=== PATIENT | female | born 1955 | race Caucasian/White ===

== ENCOUNTER 2017-08-21 09:30 | Inpatient (IN) | payer BC ==
[2017-09-05] MEDS ORDERED: SCOPOLAMINE 1 PATCH TDSY TD ONE ×2 (06:00→14:08)
[2017-09-05] MEDS ORDERED: VANCOMYCIN HCL 1,000 MG in DEXTROSE 5 % IN WATER 250 ML IVPB ONE ×2 (06:00)
[2017-09-05] MEDS ORDERED: METOCLOPRAMIDE 10 MG TABLET PO ONE (06:00)
[2017-09-05] MEDS ORDERED: CELECOXIB 100 MG CAPSULE PO ONE (06:00)
[2017-09-05] MEDS ORDERED: CEFAZOLIN 2 Gram 2 GM/50 ML BAG IVPB ONE (06:00)
[2017-09-05] MEDS ORDERED: FAMOTIDINE 20MG TABLET PO ONE (06:00)
[2017-09-05 09:15] LABS: ABO GROUP O
[2017-09-05 09:16] LABS: ANTIBODY SCREEN NEGATIVE (NEGATIVE); RH TYPE POSITIVE
[2017-09-05] MEDS ORDERED: TRANEXAMIC ACID 1,000 MG/10 ML ML IV ONE ×2 (10:40→14:00)
[2017-09-05] MEDS ORDERED: 0.9 % SODIUM CHLORIDE 10 ML VIAL IVP ONE (10:40)
[2017-09-05] MEDS ORDERED: TRAMADOL HCL 50 MG TABLET PO PRN (12:59)
[2017-09-05] MEDS ORDERED: HYDROCODONE/APAP 10/325 TABLET PO PRN (12:59)
[2017-09-05] MEDS ORDERED: DIPHENHYDRAMINE HCL 25 MG CAPSULE PO PRN (12:59)
[2017-09-05] MEDS ORDERED: ONDANSETRON HCL IV 4 MG/2 ML VIAL IVP PRN (12:59)
[2017-09-05] MEDS ORDERED: MAGNESIUM HYDROXIDE 30 ML UDC PO PRN (12:59)
[2017-09-05] MEDS ORDERED: AL HYDROX/MAG HYDROX 30ML UD PO PRN (12:59)
[2017-09-05] MEDS ORDERED: ACETAMINOPHEN W/ CODEINE 300MG/60MG TABLET PO PRN ×2 (12:59)
[2017-09-05] MEDS ORDERED: HYDROMORPHONE HCL 2 MG/ML VIAL IM PRN (12:59)
[2017-09-05] MEDS ORDERED: BISACODYL 10 MG SUPP RC PRN (12:59)
[2017-09-05] MEDS ORDERED: ZOLPIDEM TARTRATE 5 MG TABLET PO PRN (12:59)
[2017-09-05] MEDS ORDERED: ACETAMINOPHEN 325 MG TAB PO PRN (12:59)
[2017-09-05] MEDS ORDERED: NALOXONE 0.4 MG/1 ML VIAL IVP PRN (12:59)
[2017-09-05] MEDS ORDERED: BUPIVACAINE 0.5% W/EPI MPF 30 ML VIAL IVP ONE (14:00)
[2017-09-05] MEDS ORDERED: HETASTARCH IN 0.9 % NACL 500 ML IV ONE (14:00)
[2017-09-05] MEDS ORDERED: NITROGLYCERIN 0.4MG SL TABLET #25 BTL SL PRN (14:03)
[2017-09-05] MEDS ORDERED: CLOTRIMAZOLE/BETAMET 15 GM TUBE TOP PRN (14:04)
--- NOTE | 2017-09-05 16:17 | Rehab Evaluation ---
Patient Information - Patient Information Diagnosis: L hip DJD Ordered Treatment: PT Evaluate and Treat Status: Initial Evaluation Surgery: Yes (L THR) Date of Surgery: 09/05/17 Past Medical/Surgical Hx: PAST MEDICAL/SURGICAL HISTORY Past Surgical History D and C c scope x's 2 right knee scope heart cath PMH - Respiratory Hx Respiratory Disorders Yes Hx Bronchitis Yes Hx Pneumonia Yes Comment: chronic allergies PMH - Cardiovascular Hx Cardiovascular Disorders Yes Hx Abnormal EKG Yes Hx Cardiac Catheterization Yes: 8-9 yrs ago Hx Chest Pain denies recent. 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 Congenital Heart Disease Yes: see above Exercise Tolerance Poor Comment: due to hip pain PMH - Neuro Hx Neurological Disorders Yes Hx Dizziness Yes: vertigo Hx Headaches Yes: on regular basis Hx Neuropathy Yes: hands CTS Hx Weakness Yes: left hip Comment: [facility] fell off steps concussion 20 yrs ago PMH - GI Hx Gastrointestinal Disorders Yes Hx Gastroesophageal Reflux Yes: controlled on meds Hx Weight Loss/Weight Gain Yes: 54 lb loss over last 11 months PMH - Hx Genitourinary Disorders Yes Hx Age of Menopause 56 Hx Bladder Problem Yes: leaking wears pad Hx Renal Disease Yes: minimally reduced PMH - Endocrine Hx Endocrine Disorders No Hx Diabetes No Hx Thyroid Disease No PMH - Musculoskeletal Hx Musculoskeletal Disorders Yes Hx Arthritis Yes Hx Gout Yes PMH - Psych Hx Psychiatric Problems No PMH - Hematology/Oncology Hx Hematology/Oncology Yes Disorders Hx Bruising Yes: easily Premorbid Status: Detail (The patient was independent with all mobility prior to surgery, however ambulation was painful.) Social History: Detail (The patient lives in a two story home with spouse with 5 steps at the enterance with two handrailings. The patient will not be using second story immediately after surgery. The patient's bathroom is equipped with a tub/shower combination with a shower chair and a standard toilet with a riser seat. The bathroom does not have grab bars. 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 All other LE AROM is WNL.) - Strength/Tone Not within normal limits (The patient's L LE strength was not tested due to s/p surgery, however was functional. The patient's R LE was generally 4+ to 5/5.) - Bed Mobility Independent (The patient was independent with supine to sit.) - Transfers Independent (The patient was independent with sit to and from stand transfer.) - Balance Balance Sitting: Good Balance Standing: Good - Sensation Intact - Gait Detail (The patient ambulated with standard walker 13 feet ( to bathroom) WBAT on L LE with supervision for safety only. The patient ambulated with standard walker a distance of 52 x 1 with supervision of 1 for safety and to handle IV WBAT on the L LE. The patient was left in chair with call light in place and family present.) Therapy Assessment - Therapy Assessment Detail (The patient was independent with transfers and bed mobility and ambulated with supervision for safety only. The patient was able to recall all THR precautions and followed precautions correctly.) Patient Education - Patient Education Teaching Topic: Precautions (The patient recalled all THR precautions.) Response: Verbalize Understanding Teaching Method: Discussion, Handout Teaching Recipient: Patient Barriers To Learning: None Problem List - Problem List Physical Therapy Problem List: Detail (1) Decreased L LE strength as to be expected following surgery. 2) Non ambulatory on stairs.) Goals - Goals Physical Therapy Goals: 1) The patient will be Independent with THR HEP. 2) The patient will ambulate on stairs with supervision for safety only. Prognosis - Prognosis Good Plan - Plan Physical Therapy Plan: PT 1-2 times a day for instruction in THR HEP and gait training until all PT goals have been met.
[2017-09-05] MEDS: CEFAZOLIN 2 Gram 2 GM/50 ML BAG IVPB SCH (17:52)
[2017-09-05] MEDS: POTASSIUM CHLORIDE/D5-0.9%NACL 20 MEQ/1,000 ML BAG IV SCH ×2 (18:53→22:09)
[2017-09-05] MEDS ORDERED: ONDANSETRON HCL IV 4 MG/2 ML VIAL IVP ONE (19:00)
[2017-09-05] MEDS: HYDROCODONE/APAP 10/325 TABLET PO PRN (20:01)
[2017-09-05] MEDS ORDERED: PANTOPRAZOLE SODIUM 40 MG TABLET PO SCH (22:00)
[2017-09-05] MEDS ORDERED: ASPIRIN 81 MG TABEC PO SCH (22:00)
[2017-09-05] MEDS ORDERED: MULTIVITAMINS/MINERALS TABLET PO SCH (22:00)
[2017-09-05] MEDS: DOCUSATE SODIUM 100 MG CAPSULE PO SCH (22:05)
[2017-09-05] MEDS: CALCIUM CARB/VITAMIN D 500MG/200IU PO SCH (22:05)
[2017-09-06] MEDS: HYDROCODONE/APAP 10/325 TABLET PO PRN ×4 (00:30→14:14)
[2017-09-06] MEDS: CEFAZOLIN 2 Gram 2 GM/50 ML BAG IVPB SCH ×2 (02:11→09:45)
[2017-09-06] MEDS: POTASSIUM CHLORIDE/D5-0.9%NACL 20 MEQ/1,000 ML BAG IV SCH ×2 (06:18→14:11)
[2017-09-06 07:02] LABS: HEMATOCRIT 34.2 % (35.0-47.0); HEMOGLOBIN 11.2 gm/dl (11.6-16.0)
[2017-09-06 07:33] LABS: BLOOD UREA NITROGEN 12 mg/dL (6-20); CREATININE 0.8 mg/dL (0.5-0.9); EST GLOMERULAR FILTRATION RATE > 60 mL/min; GLUCOSE,RANDOM 106 mg/dL (74-109)
[2017-09-06] MEDS: CALCIUM CARB/VITAMIN D 500MG/200IU PO SCH (09:43)
[2017-09-06] MEDS: DOCUSATE SODIUM 100 MG CAPSULE PO SCH (09:44)
[2017-09-06] MEDS ORDERED: RIVAROXABAN 10 MG TABLET PO SCH (10:00)
[2017-09-06] MEDS ORDERED: ALLOPURINOL 100 MG TAB PO SCH (10:00)
[2017-09-06] MEDS ORDERED: HYDROCHLOROTHIAZIDE 12.5 MG CAPSULE PO SCH (10:00)
[2017-09-06] MEDS ORDERED: FERROUS SULFATE 325 MG TAB PO SCH (10:00)
[2017-09-06] MEDS ORDERED: ATENOLOL 25 MG TABLET PO SCH (10:00)
--- NOTE | 2017-09-06 12:50 | Rehab Evaluation ---
Patient Information - Patient Information Diagnosis: L hip DJD Ordered Treatment: OT Evaluate and Treat Status: Initial Evaluation Surgery: Yes (L THR) Date of Surgery: 09/05/17 Past Medical/Surgical Hx: PAST MEDICAL/SURGICAL HISTORY Past Surgical History D and C c scope x's 2 right knee scope heart cath PMH - Respiratory Hx Respiratory Disorders Yes Hx Bronchitis Yes Hx Pneumonia Yes Comment: chronic allergies PMH - Cardiovascular Hx Cardiovascular Disorders Yes Hx Abnormal EKG Yes Hx Cardiac Catheterization Yes: 8-9 yrs ago Hx Chest Pain denies recent. 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 Congenital Heart Disease Yes: see above Exercise Tolerance Poor Comment: due to hip pain PMH - Neuro Hx Neurological Disorders Yes Hx Dizziness Yes: vertigo Hx Headaches Yes: on regular basis Hx Neuropathy Yes: hands CTS Hx Weakness Yes: left hip Comment: [facility] fell off steps concussion 20 yrs ago PMH - GI Hx Gastrointestinal Disorders Yes Hx Gastroesophageal Reflux Yes: controlled on meds Hx Weight Loss/Weight Gain Yes: 54 lb loss over last 11 months PMH - Hx Genitourinary Disorders Yes Hx Age of Menopause 56 Hx Bladder Problem Yes: leaking wears pad Hx Renal Disease Yes: minimally reduced PMH - Endocrine Hx Endocrine Disorders No Hx Diabetes No Hx Thyroid Disease No PMH - Musculoskeletal Hx Musculoskeletal Disorders Yes Hx Arthritis Yes Hx Gout Yes PMH - Psych Hx Psychiatric Problems No PMH - Hematology/Oncology Hx Hematology/Oncology Yes Disorders Hx Bruising Yes: easily Premorbid Status: Detail (The patient was independent with all mobility prior to surgery, however ambulation was painful. Mod. Ind. with I/ADL's (used AE d/t back and BLE pain).) Social History: Detail (The patient lives in a two story home with spouse with 5 steps at the enterance with two handrailings. The patient will not be using second story immediately after surgery. The patient's bathroom is equipped with a tub/shower combination with hand held shower head, a shower chair and a standard toilet with a riser seat. Pt. plans to obtain handles that attach to the toilet seat, also. The bathroom does not have grab bars. 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 Pt's will be available for 2 weeks post-sx to assist if needed during recovery period.) Precautions: [place], Fall, Other (THR precautions.) - Time With Patient Total Time Spent With Patient (Min): 35 Treatment Procedures: Detail (OT EVAL LOW. Session was concluded with pt. seated in arm chair with call light and bedside table within reach and all needs met.) Objective Data - Pain Pain Present: Yes (L hip) - Mental Status Patient Orientation: Oriented x3 - Visual Perception Appears within normal limits for therapeutic activities - ROM Within normal limits (BUE AROM. Pt. reported hx of L frozen shoulder, with no residual effects on activity post-tx.) - Strength/Tone Within normal limits (BUE MMT 4+/5) - Coordination Appears within normal limits for therapeutic activities - Transfers Independent (sit<>stand arm chair to walker and toilet with 3-in-1 commode to walker.) - Balance Balance Sitting: Good Balance Standing: Fair - Sensation Intact (Pt. reported Bran. 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 Light touch was intact bilaterally on all fingertips at this time.) - ADL's/IADL's Detail (Educ. provided in adaptive dressing techniques, application of hip precautions to ADL's, CTS conservative management and related adaptations (i.e. build up walker handles), and use of hip kit AE. Pt. verbalized understanding and returned demo. Pt. dressed UB Ind. seated in arm chair, and LB with modified Ind. using cloth bale header and sock aid. Pt. required only 2 VC to adhere to hip precautions throughout the session. Modified Ind. toileting. Pt. plans to have assistance donning compression garments.) Therapy Assessment - Therapy Assessment Detail (In-pt. OT services not recommended at this time. Pt. would benefit from in-home OT eval to assess environmental modification needs and tub t/f skills with application of hip precautions. Pt. has a positive support system, and will have assistance for at least two weeks if needed. Pt. has been compliant with hip precautions and demo. awareness of use of AE.) Patient Education - Patient Education Teaching Topic: Equipment Use, Precautions Response: Return Demonstration, Verbalize Understanding Teaching Method: Discussion, Demonstration Teaching Recipient: Patient, Significant Other () Barriers To Learning: None Problem List - Problem List Physical Therapy Problem List: Detail (1) Decreased L LE strength as to be expected following surgery. 2) Non ambulatory on stairs.) Goals - Goals Physical Therapy Goals: 1) The patient will be Independent with THR HEP. 2) The patient will ambulate on stairs with supervision for safety only. Prognosis - Prognosis Good Plan - Plan Physical Therapy Plan: PT 1-2 times a day for instruction in THR HEP and gait training until all PT goals have been met. Occupational Therapy Plan: D/C from in-pt. OT services. Educ. was provided to call rehab dept. if questions arise upon returning home.
--- NOTE | 2017-09-06 13:42 | Physical Therapy Tx Note ---
Physical Therapy Tx Note - Treatment Note Tolerated: Good Total Time Spent With Patient: 25 Physical Therapy Tx Note: Detail (The patient was up in chair and had just finished OT session. The patient complained of level 4 pain in L hip. The patient ambulated independently with standard walker a distance of 134 feet x 1 WBAT on the L LE. The patient ambulated on steps with use of folded walker and railing using proper technique with supervision for safety only. The patient's was present to observe proper technique. The patient completed THR exercises including: ankle pumps, heel slides, hip abduction, gluteal sets, hamstring sets and quad sets. The patient was independent with sit to and from supine transfer using following THR precautions.) Physical Therapy Problem List: Detail (1) Decreased L LE strength as to be expected following surgery. 2) Non ambulatory on stairs.) Physical Therapy Goals: GOALS MET: 1) The patient will be Independent with THR HEP. 2) The patient will ambulate on stairs with supervision for safety only. Physical Therapy Plan: All inpatient PT goals met. Patient is discharged from inpatient PT and is to recieve Home PT upon discharge.
[2017-09-06] MEDS ORDERED: *PACU ONLY* KETAMINE HCL 10 MG/ML (20ML) VIAL IV ONE (15:39)
[2017-09-06] MEDS ORDERED: ONDANSETRON HCL IV 4 MG/2 ML VIAL IVP ONE (15:39)
[2017-09-06] MEDS ORDERED: PHENYLEPHRINE HCL 10 MG/ML VIAL IVP ONE (15:39)
[2017-09-06] MEDS ORDERED: PROPOFOL 10 MG/ML VIAL IV ONE (15:39)
[2017-09-06] MEDS ORDERED: EPHEDRINE SULFATE 50 MG/ML ML IV ONE (15:39)
[2017-09-06] MEDS ORDERED: MIDAZOLAM HCL 2MG/2ML VIAL IV ONE (15:39)
[2017-09-06] MEDS ORDERED: DEXAMETHASONE 4 MG/ML 1ML VIAL IVP ONE (15:39)
--- NOTE | 2017-09-06 22:18 | Discharge Summary ---
DATE OF ADMISSION: 09/05/2017 DATE OF DISCHARGE: 09/06/2017 DATE OF SURGERY: 09/05/2017 HISTORY: Estephanie is a delightful 61-year-old female who presents with end-stage arthrosis of her left hip. She was admitted after a left total hip arthroplasty. Postoperatively she did well. Her hospital course was unremarkable. Her discharge hemoglobin was 11.2. She did not require transfusion. DISCHARGE INSTRUCTIONS: The plan is to discharge her to home in the care of her family. Home PT and Visiting Nurse has been arranged. She will be given Xarelto followed by Aspirin for DVT prophylaxis. She will be given [place] for pain. Her Visiting Nurse will remove her sutures in two weeks. She will follow-up in my office in four weeks. Her discharge condition was good. FINAL DIAGNOSIS/PRIMARY DIAGNOSIS: END-STAGE ARTHROSIS OF THE LEFT HIP. SECONDARY DIAGNOSIS: MORBID OBESITY. OPERATIONS AND PROCEDURES: CEMENTLESS LEFT TOTAL HIP ARTHROPLASTY. JOB NUMBER: [id number] MTDD
--- NOTE | 2017-09-06 22:45 | Operative Note ---
DATE: 09/05/2017. PREOPERATIVE DIAGNOSIS: End-stage arthrosis of the left hip. POSTOPERATIVE DIAGNOSIS: End-stage arthrosis of the left hip. PROCEDURE: Cementless left total hip arthroplasty using Ro [employer] Nephew components, with a size 54 no-hole reflection cup, a 35 degree offset 32 mm diameter highly cross-linked liner, a size 13 standard offset cementless Sutton stem with a +4, 32 mm diameter Oxinium head. STAFF SURGEON: Manish Whaley M.D. ANESTHESIA: Spinal. PREPARATION: ChloraPrep. INDIVIDUAL CONSIDERATIONS: This lady was morbidly obese with a body mass index above 40 with a soft tissue envelope of 3 to 4 inches, which required more difficult exposure and closure. PROCEDURE: The patient was taken to the Operating Room and placed supine on the operating table. She had successful induction with spinal anesthetic. She was then placed on her side, left side up, and her left leg and hip were prepped and draped in the usual fashion. The patient had a direct posterior approach to the hip. Sharp dissection was carried down through the skin and subcutaneous tissues. Small veins were coagulated with a Bovie. The tensor gluteal fascia was opened along the entire length of the incision and deep retractors were placed. Short external rotators were identified and the piriformis fossa removed. This exposed the posterior capsule. A posterior capsulectomy was performed. The hip was dislocated posteriorly. She had basically [id number] contact with bone loss in the head and marginal osteophytes. The femoral neck cut was then made about a fingerbreadth above the lesser troch using an oscillating saw. A rim capsulectomy was performed and I got the ligamentum with a Bovie. Starting with a 45 mm reamer to ream just to the medial wall, I reamed to the introitus, which was a 53 for a 54 cup. I slightly under-reamed to 52. After thorough irrigation, I impacted a size 54 no-hole reflection cup in 20 degrees of forward flexion and 40 degrees of abduction using the extraarticular alignment guide and bony landmarks. I then went ahead and placed the center cap screw. After irrigation, I impacted a 35 degree offset liner with the offset mostly laterally and slightly. After irrigation, I went ahead and delivered the proximal femur into the wound. A box-cutting osteotome was used to remove proximal metaphyseal bone. Mid-stem reaming was done to a size 13. I started feeling cortex at between 11 and 12. Broaching to 13, there was solid cementless fixation, calcar reamed and with a standard offset and a +4 head, I had absolute stability. The trial was removed and after irrigation, a size 13 standard offset Sutton stem was impacted into place with solid cementless fixation and solid calcar contact. After irrigation, I dried the Cervantes taper. A +4, 32 mm diameter Oxinium head was impacted on the Cervantes taper. The hip was reduced. I had absolute stability. Full anterior stability in full extension and external rotation. I flexed her up to her pedunculus as far as I could, internally rotated to 90 and still had stability. The hip was then thoroughly irrigated out with Betadine and saline. Hemostasis was obtained with a Bovie. She did receive 1 gram of Tranexamic Acid preoperatively. I mixed a gram of Tranexamic Acid with 30 mL of saline and placed this deep in the fascia and the fascia was then closed with running #1 Quill. The subcu was closed with multiple layers of #0 Quill. The skin was closed with linda and a sterile Bulkee compressive BEBETO-type dressing was applied. I did infiltrate the skin and subcu with 30 mL of 0.5% Marcaine with Epinephrine prior. The patient tolerated the procedure well. Needle and sponge counts were correct. Estimated blood loss was 500 mL. We will check her hemoglobin in the morning. There were no complications. JOB NUMBER: [id number] MTDD
== END 2017-09-06 15:50 | disposition home health service (06) | DRG 470 ==
LOC: EEVIPCON 09-05 08:02 → MEDSURG 09-05 08:02
PROVIDERS: ADMIT Orthopaedic Surgery; ATTEND Orthopaedic Surgery
PROC: 0SRB06A Replacement of Left Hip Joint with Oxidized Zirconium on Polyethylene Synthetic Substitute, Uncemented, Open Approach (ICD-10-PCS; principal; 2017-09-05 10:00)
DX: M16.12 Unilateral primary osteoarthritis, left hip (principal); I10 Essential (primary) hypertension; I20.9 Angina pectoris, unspecified; M10.9 Gout, unspecified; M19.90 Unspecified osteoarthritis, unspecified site; E66.9 Obesity, unspecified
CPT/HCPCS: 80048; 85014; 85018; 86850; 86900; 86901; 97110; 97530; C1776; J2370; J2405; J3480; J7060